=== PATIENT | male | born 1950 | race Caucasian/White ===

== ENCOUNTER 2017-01-01 11:30 | Observation (INO) | payer BC ==
[2017-01-01] MEDS ORDERED: Aspirin 81 MG Tab.Chew PO ONE (11:31)
[2017-01-01] MEDS ORDERED: Heparin Sodium 5,000 Units/ML Vial IVPUSH ONE (11:32)
--- NOTE | 2017-01-01 11:39 | EDM.PDOC ---
ED HPI GENERAL MEDICAL PROBLEM - General Chief Complaint: Cardiovascular Problem Stated Complaint: CHEST PAIN Time Seen by Provider: 01/01/17 11:30 Source of Information: Reports: Patient, EMS, Old Records History Limitations: Reports: No Limitations - History of Present Illness INITIAL COMMENTS - FREE TEXT/NARRATIVE: 66 yo male with known cardiac dz(previous ND) developed chest pressure with radiation to his back that began about bedtime last night. Activity made the pain worse. Denied SOB, but did have some diaphoresis, nausea, and vomited once. Went to work and got sent home. He presented to a local [facility] where he had an unremarkable EKG and was given one SL NTG which reduced his pain from an 8 down to a 1/10. His BP was noted to be about 170-180 systolic at the clinic and he states while he has not missed any of his BP meds recently, he has not had his BP checked for several months. He continues to smoke despite he prior ND. Took ASA 162 mg and his metoprolol today. Onset Date: 12/31/16 Onset Time: 22:00 Duration: Hour(s):, Other (Constant all night except worse with activity and now much reduced after NTG. ) Location: Reports: Chest, Back Quality: Reports: Pressure Severity: Moderate Improves with: Reports: Medication (NTG) Worsens with: Reports: Movement Context: Reports: Other (Hx of heart dz, cath last year negative, continues to smoke.) Associated Symptoms: Reports: Chest Pain, Diaphoresis, Nausea/Vomiting. Denies : Shortness of Breath Treatments BUSINESS OFFICE ASSISTANT: Reports: Aspirin, Nitroglycerin (one SL dose) - Related Data Allergies Allergy/AdvReac Type Severity Reaction Status Date / Time morphine Allergy Airway Verified 02/07/15 03:42 Tightness Home Meds: Home Meds . [Unable to Verify Home Med List] 01/01/17 [History] Social & Family History - Tobacco Use Smoking Status *Q: Current Every Day Smoker Years of Tobacco use: 30 - Recreational Drug Use Recreational Drug Use: No ED ROS GENERAL - Review of Systems Review Of Systems: See Below Constitutional: Reports: Diaphoresis (Transiently) HEENT: Reports: No Symptoms Respiratory: Denies: Shortness of Breath, Wheezing, Pleuritic Chest Pain, Cough , Sputum, Hemoptysis Cardiovascular: Reports: Chest Pain. Denies: Claudication, Dyspnea on Exertion , Edema, Lightheadedness Endocrine: Reports: No Symptoms GI/Abdominal: Reports: Nausea, Vomiting (one small emesis). Denies: Abdominal Pain, Black Stool, Bloody Stool, Constipation, Diarrhea : Reports: No Symptoms Musculoskeletal: Reports: No Symptoms Skin: Reports: Diaphoresis (transiently, now resolved.) Neurological: Reports: No Symptoms Psychiatric: Reports: No Symptoms ED EXAM, GENERAL - Physical Exam Exam: See Below Exam Limited By: No Limitations General Appearance: Alert, WD/WN, No Apparent Distress Eye Exam: Bilateral Eye: Normal Inspection, PERRL Ears: Normal External Exam, Normal Canal, Hearing Grossly Normal Ear Exam: Bilateral Ear: Auricle Normal, Canal Normal Nose: Normal Inspection, Normal Mucosa, No Blood Throat/Mouth: Normal Inspection, Normal Lips, Normal Teeth, Normal Oropharynx, Normal Voice, No Airway Compromise Head: Atraumatic, Normocephalic Neck: Normal Inspection, Supple, Non-Tender Respiratory/Chest: No Respiratory Distress, Lungs Clear, Normal Breath Sounds, No Accessory Muscle Use, Chest Non-Tender Cardiovascular: Regular Rate, Rhythm, No Edema GI/Abdominal: Normal Bowel Sounds, Soft, Non-Tender, No Distention Back Exam: Normal Inspection. No: CVA Tenderness (R), CVA Tenderness (L) Extremities: Normal Inspection, Normal Range of Motion, Non-Tender, No Pedal Edema Neurological: Alert, Oriented, CN II-XII Intact, Normal Cognition, No Motor/ Sensory Deficits Psychiatric: Normal Affect, Normal Mood Skin Exam: Warm, Dry, Intact, Normal Color, No Rash Lymphatic: No Adenopathy EKG INTERPRETATION EKG Date: 01/01/17 Time: 10:15 Rhythm: NSR Rate (beats/min): 75 [place]: normal P-wave: present QRS: normal ST-T: normal QT: normal Comparison: NA - no prior EKG Course - Vital Signs Text/Narrative:: NTG drip titrated to effect(BP came down, but no reduction below 1/10 pain), ASA 162 mg po, Heparin 5000 U IV CXR-negative EKG reviewed done by EMS Dr. Santo message left on cell phone @ 1220h Last Recorded V/S: Last Vital Signs Temp Pulse Resp BP 147/65 H 01/01/17 11:50 Pulse Ox - Orders/Labs/Meds Orders: Active Orders 24 hr Category Date Time Status D-DIMER QUANTITATIVE [COAG] Stat Lab 01/01/17 11:40 Received Nitroglycerin/D5W [Nitroglycerin 25 MG/D5W 250 ML] Med 01/01/17 11:45 Active 25 mg in 250 ml IV TITRATE Sodium Chloride 0.9% [Saline Flush] Med 01/01/17 11:47 Active 10 ml FLUSH ASDIRECTED PRN Medication Orders Nitroglycerin/Dextrose (Nitroglycerin 25 Mg/D5w 250 Ml) 25 mg in 250 mls @ 6 mls/hr IV TITRATE DIMITRIOS; 10 MCG/MIN PRN Reason: Protocol Last Titration: 01/01/17 12:26 Dose: 15 mcg/min, 9 mls/hr Admin: 01/01/17 11:50 Dose: 10 mcg/min, 6 mls/hr Sodium Chloride (Saline Flush) 10 ml FLUSH ASDIRECTED PRN PRN Reason: Keep Vein Open Last Admin: 01/01/17 11:48 Dose: 10 ml Labs: Laboratory Tests 01/01/17 01/01/17 01/01/17 Range/Units 11:47 11:47 11:47 WBC 6.9 (4.5-12.0) X10-3/uL RBC 5.18 (4.30-5.75) x10(6)uL Hgb 16.3 H (11.5-15.5) g/dL Hct 48.1 (30.0-51.3) % MCV 92.7 (80-96) fL MCH 31.5 (27.7-33.6) pg MCHC 34.0 (32.2-35.4) g/dL RDW 13.4 (11.5-15.5) % Plt Count 182 (125-369) X10(3)uL Sodium 141 (135-145) mmol/L Potassium 4.1 (3.5-5.3) mmol/L Chloride 105 (100-110) mmol/L Carbon Dioxide 29 (23-29) mmol/L BUN 11 (8-23) mg/dL Creatinine 0.9 (0.6-1.3) mg/dL Est Cr Clr Drug Dosing TNP Estimated GFR (MDRD) > 60 (>60) BUN/Creatinine Ratio 12.2 (9-20) Glucose 126 H (80-116) mg/dL Calcium 9.8 (8.6-10.2) mg/dL Troponin I < 0.01 L (0.02-0.06) NG/ML Urine Color (YELLOW) Urine Appearance (CLEAR) Urine pH (5.0-6.5) Ur Specific [place] (1.010-1.025) Urine Protein (NEGATIVE) mg/dL Urine Glucose (UA) (NEGATIVE) mg/dL Urine Ketones (NEGATIVE) mg/dL Urine Occult Blood (NEGATIVE) Urine Nitrite (NEGATIVE) Urine Bilirubin (NEGATIVE) Urine Urobilinogen (NEGATIVE) mg/dL Ur Leukocyte Esterase (NEGATIVE) Urine RBC (0) Urine WBC (0) Ur Squamous Epith Cells (NS,R,O) Amorphous Sediment Urine Bacteria (NS) 01/01/17 Range/Units 12:15 WBC (4.5-12.0) X10-3/uL RBC (4.30-5.75) x10(6)uL Hgb (11.5-15.5) g/dL Hct (30.0-51.3) % MCV (80-96) fL MCH (27.7-33.6) pg MCHC (32.2-35.4) g/dL RDW (11.5-15.5) % Plt Count (125-369) X10(3)uL Sodium (135-145) mmol/L Potassium (3.5-5.3) mmol/L Chloride (100-110) mmol/L Carbon Dioxide (23-29) mmol/L BUN (8-23) mg/dL Creatinine (0.6-1.3) mg/dL Est Cr Clr Drug Dosing Estimated GFR (MDRD) (>60) BUN/Creatinine Ratio (9-20) Glucose (80-116) mg/dL Calcium (8.6-10.2) mg/dL Troponin I (0.02-0.06) NG/ML Urine Color Yellow (YELLOW) Urine Appearance Slightly cloudy (CLEAR) Urine pH 7.0 H (5.0-6.5) Ur Specific [place] 1.015 (1.010-1.025) Urine Protein Negative (NEGATIVE) mg/dL Urine Glucose (UA) Normal (NEGATIVE) mg/dL Urine Ketones Negative (NEGATIVE) mg/dL Urine Occult Blood Trace (NEGATIVE) Urine Nitrite Negative (NEGATIVE) Urine Bilirubin Negative (NEGATIVE) Urine Urobilinogen Normal (NEGATIVE) mg/dL Ur Leukocyte Esterase Negative (NEGATIVE) Urine RBC 0-5 (0) Urine WBC 0-5 (0) Ur Squamous Epith Cells Occasional (NS,R,O) Amorphous Sediment Many Urine Bacteria Moderate H (NS) Meds: Medications Generic Name Dose Route Start Last Admin Trade Name Freq PRN Reason Stop Dose Admin Nitroglycerin/Dextrose 25 mg in 250 mls @ 6 mls/hr 01/01/17 11:45 01/01/17 12 :26 Nitroglycerin 25 Mg/D5w 250 Ml IV 15 mcg/min TITRATE DIMITRIOS 9 mls/hr Protocol Titration 10 MCG/MIN Sodium Chloride 10 ml 01/01/17 11:47 01/01/17 11:48 Saline Flush FLUSH 10 ml ASDIRECTED PRN Administration Keep Vein Open Discontinued Medications Generic Name Dose Route Start Last Admin Trade Name Freq PRN Reason Stop Dose Admin Aspirin 162 mg 01/01/17 11:31 01/01/17 11:30 Aspirin PO 01/01/17 11:32 162 mg ONETIME ONE Administration Heparin Sodium (Porcine) 5,000 units 01/01/17 11:32 01/01/17 11:47 Heparin Sodium IVPUSH 01/01/17 11:33 5,000 units ONETIME ONE Administration Departure - Departure Time of Disposition: 13:15 Disposition: Refer to Observation Condition: fair Clinical Impression: Tobacco abuse disorder Chest pain Qualifiers: Chest pain type: other chest pain Qualified Code(s): R07.89 - Other chest pain ; R07.8 - Other chest pain HTN (hypertension) Qualifiers: Hypertension type: essential hypertension Qualified Code(s): I10 - Essential ( primary) hypertension - My Orders Last 24 Hours: My Active Orders 01/01/17 11:40 D-DIMER QUANTITATIVE [COAG] Stat 01/01/17 11:45 Nitroglycerin/D5W [Nitroglycerin 25 MG/D5W 250 ML] 25 mg in 250 ml IV TITRATE 01/01/17 11:47 Sodium Chloride 0.9% [Saline Flush] 10 ml FLUSH ASDIRECTED PRN - Assessment/Plan Last 24 Hours: My Active Orders 01/01/17 11:40 D-DIMER QUANTITATIVE [COAG] Stat 01/01/17 11:45 Nitroglycerin/D5W [Nitroglycerin 25 MG/D5W 250 ML] 25 mg in 250 ml IV TITRATE 01/01/17 11:47 Sodium Chloride 0.9% [Saline Flush] 10 ml FLUSH ASDIRECTED PRN
[2017-01-01] MEDS ORDERED: Nitroglycerin/D5W 25 MG/250 ML BOTTLE IV SCH (11:45)
[2017-01-01] MEDS ORDERED: Sodium Chloride 0.9% 10 ML Syringe FLUSH PRN (11:47)
--- NOTE | 2017-01-01 12:19 | CR ---
INDICATION: Chest pain. CHEST: Portable AP upright view of the chest obtained 01/01/2017 was compared with 01/20/2011 and 08/27/2009. Poor inspiration is noted emphasizing the heart , which likely is normal in size. The aorta is tortuous, however, with calcification in the arch. Overlying EKG leads are noted. Density at the left costophrenic angle - epicardial fat pad - may represent some minimal fibrosis or possibly linear atelectatic change. A definite consolidating pneumonia or effusion is not seen. IMPRESSION: No acute process, except for question of linear atelectasis versus fibrosis at the left lung base laterally. Full inspiration PA and lateral views of the chest may be helpful for further evaluation. MTDD
[2017-01-01] MEDS ORDERED: Morphine 2 MG/ML Syringe IVPUSH PRN (13:14)
[2017-01-01] MEDS ORDERED: Ondansetron 4 MG Tab.DIS PO PRN (13:14)
[2017-01-01] MEDS ORDERED: Acetaminophen 325 MG Tab PO PRN (13:14)
[2017-01-01] MEDS ORDERED: Heparin Sodium 5,000 Units/ML Vial SUBCUT SCH (13:15)
[2017-01-01] MEDS ORDERED: Pneumococcal Polyvalent-23 Vaccine 0.5 ML SDV SUBCUT ONE (14:03)
[2017-01-01] MEDS ORDERED: Sodium Chloride 0.9% 250 ML IV SCH (15:45)
[2017-01-01] MEDS ORDERED: Aluminum Hydroxide/Magnesium Hydroxide Susp 30 ML Cup PO ONE ×2 (16:50→17:20)
[2017-01-01] MEDS: Heparin Sodium 5,000 Units/ML Vial SUBCUT SCH (20:42)
[2017-01-01] MEDS ORDERED: Aluminum Hydroxide/Magnesium Hydroxide Susp 30 ML Cup PO PRN (21:51)
[2017-01-01] MEDS ORDERED: Aluminum Hydroxide/Magnesium Hydroxide Susp 30 ML Cup ONE (22:22)
[2017-01-02] MEDS: Heparin Sodium 5,000 Units/ML Vial SUBCUT SCH (04:44)
--- NOTE | 2017-01-02 07:59 | PCM.CONS ---
H&P History of Present Illness - General Date of Service: 01/02/17 Source of Information: Patient - History of Present Illness Initial Comments - Free Text/Narative: 62 yo wf who is referred with a complaint of chest pain and heartburn. He was admitted with chest pain yesterday and his cardiac lemus was negative. He notes acid brash, has hx of reflux, and has undergone a Pat fundoplication. Has had upper endoscopies in [place]. Also notes some emesis depending on what he eats. Upper Posterior Chest Pain Score (Numeric/FACES): 0 epigastric Pain Score (Numeric/FACES): 5 - Related Data Allergies/Adverse Reactions: Allergies Allergy/AdvReac Type Severity Reaction Status Date / Time morphine Allergy Severe Airway Verified 01/01/17 17:15 Tightness Home Medications: Home Meds Albuterol [Ventolin HFA] 2 puff IH Q4H PRN 01/01/17 [History] Aspirin [[place] Aspirin] 162 mg PO DAILY 01/01/17 [History] Calcium Carbonate [Tums] 500 mg CHEW QID PRN 01/01/17 [History] Fluticasone/Salmeterol [Advair Diskus 100-50] 1 puff INH BID PRN 01/01/17 [ History] Metoprolol Succinate [Toprol XL 100mg] 100 mg PO DAILY 01/01/17 [History] Nitroglycerin [Nitrostat] 0.4 mg SL ASDIRECTED PRN 01/01/17 [History] Rosuvastatin [Crestor] 10 mg PO DAILY 01/01/17 [History] Tadalafil [Cialis] 10 mg PO WEEKLY PRN 01/01/17 [History] Past Medical History Cardiovascular History: Reports: High Cholesterol, ME, Stents Respiratory History: Reports: Asthma, Sleep Apnea Gastrointestinal History: Reports: GERD - Infectious Disease History Infectious Disease History: Reports: Chicken Pox, Measles, Rubella - Past Surgical History Cardiovascular Surgical History: Reports: Coronary Artery Stent GI Surgical History: Reports: EGD, Pat Fundoplication Social & Family History - Family History Family Medical History: Noncontributory - Tobacco Use Smoking Status *Q: Current Every Day Smoker Years of Tobacco use: 35 Packs/Tins Daily: 0.7 - Caffeine Use Caffeine Use: Reports: Coffee, Soda, Tea - Alcohol Use Days Per Week of Alcohol Use: 2 Number of Drinks Per Day: 2 Total Drinks Per Week: 4 - Recreational Drug Use Recreational Drug Use: No H&P Review of Systems - Review of Systems: Review Of Systems: See Below General: Reports: No Symptoms HEENT: Reports: No Symptoms Pulmonary: Reports: No Symptoms Cardiovascular: Reports: Chest Pain Gastrointestinal: Reports: Vomiting Genitourinary: Reports: No Symptoms Musculoskeletal: Reports: No Symptoms Exam - Exam Exam: See Below - Vital Signs Vital Signs: Last Vital Signs Temp 36.6 C 01/02/17 05:20 Pulse 64 01/02/17 05:20 Resp 19 01/02/17 05:20 BP 145/88 H 01/02/17 05:20 Pulse Ox 93 L 01/02/17 05:20 Weight: 79.946 kg - Exam General: Alert, Oriented Lungs: Clear to Auscultation, Normal Respiratory Effort Cardiovascular: Regular Rate, Regular Rhythm Abdomen: Normal Bowel Sounds, Soft, Pelvis Stable - Patient Data Lab Results last 24 hrs: Laboratory Results - last 24 hr 01/01/17 01/02/17 Range/Units 15:05 06:20 Troponin I < 0.01 L < 0.01 L (0.02-0.06) NG/ML Result Diagrams: 01/01/17 11:47 01/01/17 11:47 Consult PN Assessment/Plan Procedures: Procedures ECHO EXAM OF ABDOMEN (09/12/13) EMERGENCY DEPT VISIT (02/07/15) MRI LUMBAR SPINE W/O DYE (03/29/15) THER/PROPH/DIAG INJ SC/IM (02/07/15) (1) Chronic GERD SNOMED Code(s): 111492775, [id number] Code(s): K21.9 - GASTRO-ESOPHAGEAL REFLUX DISEASE WITHOUT ESOPHAGITIS Current Visit: Yes Problem List Initiated/Reviewed/Updated: Yes Plan: recommned EGD. as pt ate this am can be done as an outpt. Please let us know when he is being discharged and we will set this up. procedure and risks explained to the pt to include bleeding, infection and perforation. He expressed understanding and asks us to proceed.
[2017-01-02] MEDS ORDERED: Metoprolol Succinate 100 MG Tab.ER PO SCH (09:00)
[2017-01-02] MEDS ORDERED: Rosuvastatin 10 MG Tab PO SCH (09:00)
[2017-01-02 09:09] VITALS: BP 154/83
[2017-01-02] MEDS ORDERED: Aluminum Hydroxide/Magnesium Hydroxide Susp 30 ML Cup PO PRN (09:21)
[2017-01-02] MEDS ORDERED: Omeprazole 20 MG Cap.CR PO ONE (09:30)
[2017-01-02] MEDS ORDERED: Omeprazole 20 MG Cap.CR PO SCH (09:30)
[2017-01-02] MEDS: Aluminum Hydroxide/Magnesium Hydroxide Susp 30 ML Cup PO SCH ×2 (10:38→10:39)
--- NOTE | 2017-01-02 14:10 | HP ---
ADMISSION DATE: 01/01/2017 HISTORY OF PRESENT ILLNESS: Tarun Faria is a 66-year-old male from [place], [place], who was seen initially whopping at [facility], was transferred to [facility] with acute chest pain. The patient reports onset of pain a night prior too. Was resting, awakened from his attempted rest with severe precordial chest pain, nausea, and a sense of reduced wellbeing. Activity made the pain worse. No troublesome shortness of breath. Did have one episode of vomiting. Went to work in the morning 01/01, coworker's noted his sense of reduced wellbeing. Was seen at [facility], EKG was unremarkable, sublingual nitroglycerin reduced his pain, was transferred to [facility]. Blood pressure was markedly elevated at the time of admission. Intervention was appropriate, was placed on nitroglycerin drip, admitted to hospital for treatment and intervention. HOME MEDICATIONS: Include aspirin 81 mg two daily, calcium carbonate 500 mg q.i.d., Advair 100-50 one puff b.i.d., p.r.n. nitroglycerin, p.r.n. Cialis, Metoprolol-XL 100 mg 1 p.o. daily, and 10 mg of generic Crestor. ALLERGIES: Allergic to morphine with airway tightness. No other medication, environmental, or latex allergies. PAST MEDICAL HISTORY: Significant for coronary artery disease, acute ND, and stent about 2006 which artery unknown. He has had a previous Pat fundoplication in 2001 for GERD, and two previous ankle surgeries for complicated fractures. Chronic illnesses include coronary artery disease, hypertension, hyperlipidemia. No other ongoing medical problems. SOCIAL HISTORY: , six kids, nine grandkids. Long-term one pack per day smoker. No alcohol consumption. No illicit drug use. Works at [employer] in [employer]. FAMILY HISTORY: No early heart disease. REVIEW OF SYSTEMS: CONSTITUTIONAL: Feeling generally well. EYES: Sees well with correction. EARS: Some difficulty in crowds. Oropharynx, no loose dentition. CHEST: Please see HPI. CARDIOVASCULAR: Please see HPI. GI: Complicated heartburn recurrent in nature, true dysphagia, episodes of vomiting unresponsive to antiulcer treatment. : Nocturia x1. No blood in urine. SKIN: No open sores or lesions. ENDOCRINE: Denies endocrine issues. PSYCHOLOGICAL: Mood stable. PHYSICAL EXAMINATION: VITAL SIGNS: Stable and documented per exam. GENERAL: Appears comfortable morning of admission. HEENT: Funduscopic benign. Bright TMs. Clear nasal discharge. Mouth and oropharynx are clear. CHEST: Clear in all lung julien. No adventitious sounds. HEART: Regular without ectopy or murmur. ABDOMEN: Soft, benign. No hepatosplenomegaly. : Normal male genitalia. RECTAL: Deferred. EXTREMITIES: Well perfused. Venous stasis changes. LABORATORY STUDIES: CBC revealed white count 6900, hemoglobin 16.3, hematocrit 48.1. Normal electrolytes. Random glucose 126. Troponin x2 negative. Urinalysis was clear. EKG unremarkable. IMPRESSION: Acute complicated precordial chest pain, GI versus cardiac. PLAN: Appropriate diagnostic studies, close observation, we will DC the IV nitroglycerin, focus on a GI origin given dysphagia, Pat fundoplication, difficulty with swallowing, repetitive vomiting, and complicated heartburn. The patient is in agreement. Consultation JUNIOR, status echo upcoming and planned. /[id number] EDEN/HO
--- NOTE | 2017-01-03 04:31 | DISCH ---
DISCHARGE DATE: 01/02/2017 Tarun Faria is a 66-year-old male admitted with a peculiar complicated pericardial chest pain. It appears to be gastrointestinal in nature. EKG is normal. Troponins x3 were normal, related to dysphagia, sticking of food, complicated heartburn, unresponsive; uses Tums on a daily basis. Long- term smoker and previous Pat fundoplication in 2001. He was to be scheduled for endoscopy this morning, had eaten in the morning. He was seen in consultation by Dr. Grant and agrees to follow accordingly. Discharged home on appropriate medications. MEDICATIONS: Please see discharge med recon list. Encouraged not to smoke, good nutrition, fluids, and appropriate dietary management. /[id number] EDEN/HO
[2017-01-03] MEDS ORDERED: Esomeprazole 40 MG Cap PO ONE (07:30)
== END 2017-01-02 10:57 | disposition home or self-care (01) ==
LOC: FB.ED 11:30 → FB.ICU 13:27
PROVIDERS: ADMIT Family Medicine; ATTEND Family Medicine
DX: R07.2 Precordial pain (principal); I25.10 Atherosclerotic heart disease of native coronary artery without angina pectoris; I10 Essential (primary) hypertension; E78.5 Hyperlipidemia, unspecified; I21.3 ST elevation (STEMI) myocardial infarction of unspecified site; Z79.82 Long term (current) use of aspirin; Z79.899 Other long term (current) drug therapy; Z88.8 Allergy status to other drugs, medicaments and biological substances; Z98.890 Other specified postprocedural states; F17.210 Nicotine dependence, cigarettes, uncomplicated; J45.909 Unspecified asthma, uncomplicated; G47.30 Sleep apnea, unspecified; Z95.5 Presence of coronary angioplasty implant and graft; K21.9 Gastro-esophageal reflux disease without esophagitis
CPT/HCPCS: 36415; 71010; 80048; 81001; 83735; 84484; 85027; 85379; 93005; 96365; 96366; 96372; 99285; A9270; G0378; J1644; J7050; 96375

== ENCOUNTER 2017-01-04 07:21 | Day surgery (SDC) | payer BC ==
[~2017-01-04 07:21] MED LIST: Lactated Ringers 1,000 ML IV SCH; Sodium Chloride 0.9% 10 ML Syringe FLUSH PRN
[2017-01-04] MEDS ORDERED: Lactated Ringers 1,000 ML IV ONE (11:00)
[2017-01-04] MEDS ORDERED: Propofol 200 MG/20 ML SDV IV ONE (11:00)
[2017-01-04] MEDS ORDERED: Albuterol 8 GM Inhaler INH ONE (11:00)
[2017-01-04] MEDS ORDERED: Lidocaine 2% 100 MG/5 ML Syringe IVPUSH ONE (11:00)
[2017-01-04] MEDS ORDERED: Midazolam 1 MG/ML 2 ML SDV IV ONE (11:00)
--- NOTE | 2017-01-04 11:23 | PCM.OPNOTE ---
- General Post-Op/Procedure Note Date of Surgery/Procedure: 01/04/17 Operative Procedure(s): egd with bx Findings: gatritis erosive esophagitis small hiatal hernia Pre Op Diagnosis: gerd Post-Op Diagnosis: gatritis. erosive esophagitis. small hiatal hernia Anesthesia Technique: MAC Primary Surgeon: Mendel Grant Anesthesia Provider: Clemencia Velasquez Pathology: stomach and esophagus Complications: None Condition: Good Free Text/Narrative:: see dictation
[2017-01-04 12:18] VITALS: BP 135/79
--- NOTE | 2017-01-04 12:40 | OR ---
DATE OF OPERATION: 01/04/2017 SURGEON: Mendel Grant MD PROCEDURE PERFORMED: Upper endoscopy with cold forceps biopsy. PREOPERATIVE DIAGNOSIS: History of gastroesophageal reflux disease with epigastric pain. POSTOPERATIVE DIAGNOSES: Gastritis and erosive esophagitis as well as a small hiatal hernia. INDICATIONS FOR PROCEDURE: This is a 66-year-old white male, who is admitted late last week with a complaint of some chest discomfort. Cardiac workup was negative. On further questioning, it was apparent that the patient had some issues with reflux disease. He has never had an upper endoscopy. He was offered and accepted same. DESCRIPTION OF PROCEDURE: After an excellent IV sedation was administered, the bite block was inserted. The flexible endoscope was passed without difficulty down the patient's esophagus into the stomach. The stomach was insufflated. The scope was passed through the pylorus to the second portion of duodenum and slowly withdrawn. The following findings were noted: Duodenum, unremarkable. Stomach demonstrates diffuse gastritis with small hiatal hernia. Distal esophagus two tongues of what appeared to be erosive esophagitis. Biopsies were taken. The remainder of the esophageal exam was unremarkable. The stomach was deflated, scope was removed. The patient tolerated the procedure well and was taken to recovery in good condition. /[id number] ISREAL/HO
== END 2017-01-04 12:35 | disposition home or self-care (01) ==
LOC: FB.SDS 07:21
PROVIDERS: ATTEND Surgery
DX: K21.0 Gastro-esophageal reflux disease with esophagitis (principal); K29.50 Unspecified chronic gastritis without bleeding; K44.9 Diaphragmatic hernia without obstruction or gangrene; E78.00 Pure hypercholesterolemia, unspecified; I25.2 Old myocardial infarction; J45.909 Unspecified asthma, uncomplicated; G47.30 Sleep apnea, unspecified; F17.210 Nicotine dependence, cigarettes, uncomplicated; Z79.82 Long term (current) use of aspirin; Z79.899 Other long term (current) drug therapy; Z88.5 Allergy status to narcotic agent; Z98.890 Other specified postprocedural states; Z95.5 Presence of coronary angioplasty implant and graft
CPT/HCPCS: 43239; 88305; 88342; A9270; J2250; J2704; J7120

== ENCOUNTER 2022-01-16 06:52 | Day surgery (SDC) | payer BC ==
[2022-01-16] MEDS ORDERED: Propofol 200 MG/20 ML SDV IV ONE (06:53)
[2022-01-16] MEDS ORDERED: Lidocaine 2% 5 ML SDV INJECT ONE (06:53)
[2022-01-16] MEDS ORDERED: Sodium Chloride 0.9% 10 ML Syringe FLUSH PRN (07:00)
[2022-01-16] MEDS ORDERED: Lactated Ringers 1,000 ML IV SCH (07:00)
[2022-01-16 10:16] VITALS: BP 110/50; PULSE 61
== END 2022-01-16 10:11 | disposition home or self-care (01) ==
LOC: FB.SDS 06:52
PROVIDERS: ATTEND Surgery
DX: K29.50 Unspecified chronic gastritis without bleeding (principal); K21.00 Gastro-esophageal reflux disease with esophagitis, without bleeding; K44.9 Diaphragmatic hernia without obstruction or gangrene; K25.9 Gastric ulcer, unspecified as acute or chronic, without hemorrhage or perforation; K29.80 Duodenitis without bleeding; K31.89 Other diseases of stomach and duodenum; K22.70 Barrett's esophagus without dysplasia; I25.2 Old myocardial infarction; Z95.5 Presence of coronary angioplasty implant and graft; F17.210 Nicotine dependence, cigarettes, uncomplicated; G47.30 Sleep apnea, unspecified; I25.10 Atherosclerotic heart disease of native coronary artery without angina pectoris; Z79.899 Other long term (current) drug therapy
CPT/HCPCS: 00731; 43239; 88305; 88313; 88342; J2704; J7120

== ENCOUNTER 2022-07-17 13:14 | Inpatient (IN) | payer BC ==
[2022-07-17] MEDS ORDERED: Polyethylene Glycol 3350 Powder 17 GM Packet PO PRN (13:20)
[2022-07-17] MEDS ORDERED: Ondansetron 4 MG Tab.DIS PO PRN (13:20)
[2022-07-17] MEDS: Sodium Chloride 0.9% 10 ML Syringe FLUSH PRN ×2 (13:30→15:30)
[2022-07-17] MEDS ORDERED: hydrALAZINE 20 MG/ML SDV IVPUSH PRN (14:03)
[2022-07-17 14:17] LABS: PO2 ARTERIAL,POC 52 mmHg (83-108)
[2022-07-17 14:33] LABS: CORONAVIRUS COVID-19 NAA NEGATIVE (NEGATIVE)
[2022-07-17 14:44] LABS: ESTIMATED GFR 92 mL/min (>60)
[2022-07-17] MEDS: Enoxaparin 40 MG/0.4 ML Syringe SUBCUT SCH (15:19)
[2022-07-17] MEDS: methylPREDNISolone Sodium Succinate 40 MG/1 ML SDV IVPUSH SCH (15:19)
[2022-07-17] MEDS: Doxycycline 100 MG Tab PO SCH ×2 (15:19→20:24)
[2022-07-17] MEDS: Albuterol 0.083% 2.5 MG/3 ML Neb Soln NEB PRN ×2 (17:04→20:36)
[2022-07-17] MEDS: Benzonatate 100 MG Cap PO PRN (18:05)
[2022-07-17] MEDS: Pantoprazole 40 MG Tab.CR PO SCH (20:24)
[2022-07-18] MEDS: methylPREDNISolone Sodium Succinate 40 MG/1 ML SDV IVPUSH SCH ×2 (01:29→14:18)
[2022-07-18] MEDS: Sodium Chloride 0.9% 10 ML Syringe FLUSH PRN ×3 (01:30→14:18)
[2022-07-18] MEDS: Pantoprazole 40 MG Tab.CR PO SCH ×2 (05:14→20:39)
[2022-07-18] MEDS: Aspirin 81 MG Tab.EC PO SCH (08:54)
[2022-07-18] MEDS: Rosuvastatin 10 MG Tab PO SCH (08:54)
[2022-07-18] MEDS: Doxycycline 100 MG Tab PO SCH ×2 (08:55→20:39)
[2022-07-18] MEDS: Metoprolol Succinate 100 MG Tab.ER PO SCH (08:55)
[2022-07-18] MEDS: TRELEGY ELLIPTA INH SCH (08:57)
[2022-07-18] MEDS: Albuterol 0.083% 2.5 MG/3 ML Neb Soln NEB PRN ×3 (14:06→20:38)
[2022-07-18] MEDS: Enoxaparin 40 MG/0.4 ML Syringe SUBCUT SCH (14:13)
[2022-07-18] MEDS: Benzonatate 100 MG Cap PO PRN (20:38)
[2022-07-19] MEDS: methylPREDNISolone Sodium Succinate 40 MG/1 ML SDV IVPUSH SCH ×2 (01:25→14:11)
[2022-07-19] MEDS: Sodium Chloride 0.9% 10 ML Syringe FLUSH PRN ×2 (01:26→14:11)
[2022-07-19] MEDS: Benzonatate 100 MG Cap PO PRN ×2 (01:32→20:00)
[2022-07-19] MEDS: Albuterol 0.083% 2.5 MG/3 ML Neb Soln NEB PRN ×5 (04:13→20:00)
[2022-07-19] MEDS: Pantoprazole 40 MG Tab.CR PO SCH ×2 (05:00→20:01)
[2022-07-19 06:49] LABS: ESTIMATED GFR 92 mL/min (>60)
[2022-07-19] MEDS: Rosuvastatin 10 MG Tab PO SCH (09:17)
[2022-07-19] MEDS: TRELEGY ELLIPTA INH SCH (09:17)
[2022-07-19] MEDS: Metoprolol Succinate 100 MG Tab.ER PO SCH (09:18)
[2022-07-19] MEDS: Aspirin 81 MG Tab.EC PO SCH (09:18)
[2022-07-19] MEDS: Doxycycline 100 MG Tab PO SCH ×2 (09:19→20:01)
[2022-07-19] MEDS: Enoxaparin 40 MG/0.4 ML Syringe SUBCUT SCH (13:43)
[2022-07-20] MEDS: methylPREDNISolone Sodium Succinate 40 MG/1 ML SDV IVPUSH SCH (01:37)
[2022-07-20] MEDS: Sodium Chloride 0.9% 10 ML Syringe FLUSH PRN (01:37)
[2022-07-20] MEDS: Benzonatate 100 MG Cap PO PRN (05:29)
[2022-07-20] MEDS: Albuterol 0.083% 2.5 MG/3 ML Neb Soln NEB PRN (05:29)
[2022-07-20] MEDS: Pantoprazole 40 MG Tab.CR PO SCH (05:30)
[2022-07-20 06:36] LABS: ESTIMATED GFR 92 mL/min (>60)
[2022-07-20] MEDS: Doxycycline 100 MG Tab PO SCH (08:20)
[2022-07-20] MEDS: Aspirin 81 MG Tab.EC PO SCH (08:20)
[2022-07-20] MEDS: Rosuvastatin 10 MG Tab PO SCH (08:20)
[2022-07-20] MEDS: Metoprolol Succinate 100 MG Tab.ER PO SCH (08:20)
[2022-07-20 08:21] VITALS: BP 122/67; PULSE 61
[2022-07-20] MEDS: TRELEGY ELLIPTA INH SCH (08:21)
== END 2022-07-20 11:40 | disposition home or self-care (01) | DRG 133 ==
LOC: FB.MS 13:14
PROVIDERS: ADMIT Family Medicine; ATTEND Family Medicine
DX: J96.01 Acute respiratory failure with hypoxia (principal); F17.210 Nicotine dependence, cigarettes, uncomplicated; J44.1 Chronic obstructive pulmonary disease with (acute) exacerbation; J96.02 Acute respiratory failure with hypercapnia; I10 Essential (primary) hypertension; I25.10 Atherosclerotic heart disease of native coronary artery without angina pectoris; E78.00 Pure hypercholesterolemia, unspecified; K21.9 Gastro-esophageal reflux disease without esophagitis; M19.90 Unspecified osteoarthritis, unspecified site; E66.9 Obesity, unspecified; Z86.19 Personal history of other infectious and parasitic diseases; Z79.82 Long term (current) use of aspirin; Z79.52 Long term (current) use of systemic steroids; Z79.899 Other long term (current) drug therapy; Z88.5 Allergy status to narcotic agent; Z95.5 Presence of coronary angioplasty implant and graft; Z98.890 Other specified postprocedural states; B97.4 Respiratory syncytial virus as the cause of diseases classified elsewhere; Z20.822 Contact with and (suspected) exposure to COVID-19; Z68.30 Body mass index [BMI] 30.0-30.9, adult
CPT/HCPCS: 0241U; 36415; 71046; 80048; 80053; 82803; 83735; 85025; 93005; 94150; 94640; A9270-GY; J1650; J2920; J3490